=== PATIENT | male | born 1995 | race Two or more races ===

== ENCOUNTER 2020-12-17 08:44 | Emergency (ER) | payer OTHER, SELFPAY ==
--- NOTE | ~2020-12-17 | XR_ITS ---
EXAMINATION: XR SOFT TISSUE NECK CLINICAL INDICATION: Sore throat COMPARISON: None TECHNIQUE: 2 views of the soft tissue neck were obtained. FINDINGS: Soft tissue films of the neck demonstrate a normal larynx, pharynx and upper trachea. No soft tissue swelling or opaque foreign body is demonstrated. XR/XR soft tissue neck IMPRESSION: Unremarkable soft tissue neck examination.
[2020-12-17 08:48] VITALS: BP 131/74; PULSE 125; RESP 14; TEMP 36.9; O2SAT 95; BMI 28.0
--- NOTE | 2020-12-17 09:14 | ED.GENADULT ---
HPI - General Adult General Chief complaint: General Medical Stated complaint: tonsils are swollen Time Seen by Provider: 12/17/20 09:05 History of Present Illness HPI narrative: This is a 25 years old patient presented to the emergency department with a chief complaint of a sore throat today denies any fever chills vomiting Onset (ago): week(s) (1) Radiation: non-radiation Severity: moderate Severity scale (1-10): 5 Quality: burning Pain Consistency: constant Related Data Previous Rx's Medication Instructions Recorded prednisone 20 mg tablet 60 mg PO DAILY #12 tab 12/17/20 prednisone 20 mg tablet 60 mg PO DAILY #12 tab 12/17/20 Allergies Allergy/AdvReac Type Severity Reaction Status Date / Time No Known Allergies Allergy Verified 12/17/20 09:06 Review of Systems Review of Systems: Yes all other systems are reviewed and are negative Constitutional: Constitutional: Denies fever(s) ENT: Reports as per HPI Cardiovascular: Cardiovascular: Reports no additional cardiovascular complaints Respiratory: Respiratory: Reports no additional respiratory complaints Gastrointestinal: Gastrointestinal: Reports no additional gastrointestinal complaints Musculoskeletal: Musculoskeletal: Reports no additional musculoskeletal complaints Neurologic: Reports system reviewed and no additional complaints, except as documented [facility] Past Medical History Attestation statement: The following information was validated with the patient. Social History Social History Alcohol intake: never Patient Tobacco Use Status: Never used Tobacco Use of substances other than those prescribed or required for medical reasons: No Advance Directives: Yes Advance Directives Information Provided: Yes Advance Directives on File: No Physical Exam Vital Signs: Vital Signs: Last Vital Signs Temp 98.5 F 12/17/20 08:48 Pulse 122 H 12/17/20 11:05 Resp 16 12/17/20 11:05 BP 124/84 12/17/20 11:05 Pulse Ox 99 12/17/20 11:05 Body Mass Index 28.0 Const: Other: He is not toxic-appearing General: cooperative Nutritional Appearance: average body habitus Orientation/consciousness: oriented to person, oriented to place, oriented to time and patient oriented x3 HENMT: Other: Examination the throat showed swelling of the tonsil with exudates present Head: Yes normal to inspection Ears: hearing grossly normal bilaterally General nose exam: Normal external nose present Face and sinus: Yes normal facial exam Throat: Yes other (Swelling of the tonsils with exudation) Neck: Neck: Yes normal visual inspection Thyroid: Thyroid normal Chest: Chest palpation & inspection: normal inspection of the chest and normal palpation of entire chest wall Resp: Auscultation: clear to auscultation bilaterally Cardio: Jugular venous distension: no JVD Rate: regular rate Rhythm: regular rhythm GI: Inspection: Yes normal to inspection Palpation (GI): Soft to palpation, nontender and no guarding Auscultation: normal bowel sounds Skin: General skin exam: no rashes or lesions noted and elasticity normal Lesions: no lesions Wounds: no wounds Neuro: Other: Patient is awake alert oriented x3 no focal deficit General: oriented to person, oriented to place, oriented to time and patient oriented x3 Course Reevaluation(s) Reevaluation #1: HE IS FEELING BETTER HE IS ABLE TO TOLERATE P.O. WELL IS AFEBRILE AND NONTOXIC LABS SHOW THAT HE HAS MONOSPOT POSITIVE, WE WILL DISCHARGE THE PATIENT HOME ON PREDNISONE I GAVE HIM A PRESCRIPTION A 60 MG OF P.O. FOR 4 DAYS Medical Decision Making Lab Data Result diagrams: 12/17/20 11:02 12/17/20 11:02 Labs: Lab Results 12/17/20 12/17/20 12/17/20 Range/Units 09:22 09:54 11:02 WBC 14.9 H (4.8-10.8) X10*3/uL RBC 5.43 (4.60-5.80) X10*6/uL Hgb 14.0 (14.0-18.0) g/dl Hct 42.0 (42-52) % MCV 77.3 L (80-98) fL MCH 25.8 L (27.0-33.0) pg MCHC 33.3 (31.0-36.0) g/dl RDW 14.2 (11.0-16.0) % Plt Count 301 (160-400) X10*3/uL MPV 10.1 (9.4-12.4) fL Immature Gran % (Auto) Cancelled Neut % (Auto) Cancelled Lymph % (Auto) Cancelled [place] % (Auto) Cancelled Eos % (Auto) Cancelled Baso % (Auto) Cancelled Lymph # (Auto) Cancelled [place] # (Auto) Cancelled Eos # (Auto) Cancelled Baso # (Auto) Cancelled Abs Immat Gran (auto) Cancelled Absolute Neuts (auto) Cancelled Absolute Nucleated RBC 0.000 (0.0-0.012) X10*3/uL Nucleated RBC % (auto) 0.0 (0.0-0.2) /100WBC Neutrophils % (Manual) 35 L (45-73) % Band Neutrophils % 4 (3-5) % Lymphocytes % (Manual) 34 (20-40) % Atypical Lymphs % (Man) 18 H (0-6) % Monocytes % (Manual) 8 (2-11) % Basophils % (Manual) 1 (0-1) % Abs Neuts (Manual) 5.8 (2.2-7.9) X10*3/uL Lymphocytes # (Manual) 5.1 H (0.6-4.8) X10*3/uL Atyp Lymphs # (Manual) 2.7 x10*3/uL Monocytes # (Manual) 1.2 (0.0-1.2) X10*3/uL Basophils # (Manual) 0.1 (0.0-0.3) X10*3/uL Platelet Estimate NORMAL (NORMAL) Plt Morphology Comment NORMAL RBC Morphology NOTED Microcytosis 2+ (15-30) /OIF Acanthocytes (Spur) 1+ (0-2) /OIF Sodium (135-145) mmol/L Potassium (3.3-5.1) mmol/L Chloride (96-108) mmol/L Carbon Dioxide (22-29) mmol/L Anion Gap (12-20) BUN (9-16) mg/dL Creatinine (0.5-1.4) mg/dL Estim Creat Clear Calc Estimated GFR Random Glucose (60-115) mg/dL Calcium (8.4-10.2) mg/dL Total Bilirubin (0.0-1.0) mg/dL AST (5-37) U/L ALT (0-40) U/L Alkaline Phosphatase (39-117) U/L Total Protein (6.5-8.0) g/dL Albumin (3.5-5.0) g/dL Monoscreen (Negative) S. pyogenes GrpA STEPHANE (Negative) 12/17/20 12/17/20 Range/Units 11:02 11:02 WBC (4.8-10.8) X10*3/uL RBC (4.60-5.80) X10*6/uL Hgb (14.0-18.0) g/dl Hct (42-52) % MCV (80-98) fL MCH (27.0-33.0) pg MCHC (31.0-36.0) g/dl RDW (11.0-16.0) % Plt Count (160-400) X10*3/uL MPV (9.4-12.4) fL Immature Gran % (Auto) Neut % (Auto) Lymph % (Auto) [place] % (Auto) Eos % (Auto) Baso % (Auto) Lymph # (Auto) [place] # (Auto) Eos # (Auto) Baso # (Auto) Abs Immat Gran (auto) Absolute Neuts (auto) Absolute Nucleated RBC (0.0-0.012) X10*3/uL Nucleated RBC % (auto) (0.0-0.2) /100WBC Neutrophils % (Manual) (45-73) % Band Neutrophils % (3-5) % Lymphocytes % (Manual) (20-40) % Atypical Lymphs % (Man) (0-6) % Monocytes % (Manual) (2-11) % Basophils % (Manual) (0-1) % Abs Neuts (Manual) (2.2-7.9) X10*3/uL Lymphocytes # (Manual) (0.6-4.8) X10*3/uL Atyp Lymphs # (Manual) x10*3/uL Monocytes # (Manual) (0.0-1.2) X10*3/uL Basophils # (Manual) (0.0-0.3) X10*3/uL Platelet Estimate (NORMAL) Plt Morphology Comment RBC Morphology Microcytosis /OIF Acanthocytes (Spur) /OIF Sodium 137 (135-145) mmol/L Potassium 3.9 (3.3-5.1) mmol/L Chloride 102 (96-108) mmol/L Carbon Dioxide 24 (22-29) mmol/L Anion Gap 15 (12-20) BUN 8 L (9-16) mg/dL Creatinine 1.05 (0.5-1.4) mg/dL Estim Creat Clear Calc 96.3 Estimated GFR > 60 Random Glucose 101 (60-115) mg/dL Calcium 9.8 (8.4-10.2) mg/dL Total Bilirubin 0.6 (0.0-1.0) mg/dL AST 62 H (5-37) U/L ALT 177 H (0-40) U/L Alkaline Phosphatase 138 H (39-117) U/L Total Protein 8.1 H (6.5-8.0) g/dL Albumin 4.6 (3.5-5.0) g/dL Monoscreen Positive A (Negative) S. pyogenes GrpA STEPHANE (Negative) Discharge Plan Discharge Clinical Impression: Mononucleosis Patient Disposition: Home, Self-Care Instructions: Mononucleosis (ED) Prescriptions: New prednisone 20 mg tablet 60 mg PO DAILY Qty: 12 RF: 0 prednisone 20 mg tablet 60 mg PO DAILY Qty: 12 RF: 0
--- NOTE | 2020-12-17 09:42 | PC.NURSE ---
Per lab Strep swab not resulting and a new order should be placed and specimen re-collected.
[2020-12-17] MEDS: predniSONE 20 MG TABLET 60 MG PO (09:53)
[2020-12-17 10:23] LABS: IDNOW Serial# 08D9AD1C
[2020-12-17 11:05] VITALS: BP 124/84; PULSE 122; RESP 16; O2SAT 99
[2020-12-17] MEDS: 0.9 % Sodium Chloride 1,000 ML 999 ML IVCONT (11:05)
[2020-12-17 11:09] LABS: Mean Corpuscular HGB Conc 33.3 g/dl (31.0-36.0); Mean Corpuscular Hemoglobin 25.8 pg (27.0-33.0); Mean Corpuscular Volume 77.3 fL (80-98); Mean Platelet Volume 10.1 fL (9.4-12.4); Platelet Count 301 X10*3/uL (160-400); Red Blood Count 5.43 X10*6/uL (4.60-5.80); Red Cell Distribution Width 14.2 % (11.0-16.0); White Blood Count 14.9 X10*3/uL (4.8-10.8)
[2020-12-17 11:31] LABS: Alanine Aminotransferase 177 U/L (0-40); Albumin Level 4.6 g/dL (3.5-5.0); Alkaline Phosphatase 138 U/L (39-117); Anion Gap 15 (12-20); Aspartate Amino Transferase 62 U/L (5-37); Bilirubin Total 0.6 mg/dL (0.0-1.0); Blood Urea Nitrogen 8 mg/dL (9-16); Calcium 9.8 mg/dL (8.4-10.2); Carbon Dioxide 24 mmol/L (22-29); Chloride 102 mmol/L (96-108); Creatinine Clr Calc Pharmacy 96.3; Estimated Glomerular Filt Rate > 60; Glucose Random 101 mg/dL (60-115); Potassium 3.9 mmol/L (3.3-5.1); Sodium 137 mmol/L (135-145); Total Protein 8.1 g/dL (6.5-8.0)
[2020-12-17 11:37] LABS: Atypical Lymph Absolute Manual 2.7 x10*3/uL; Atypical Lymphs Percent Manual 18 % (0-6); Band Neutrophils Percent 4 % (3-5); Basophils Abs Manual 0.1 X10*3/uL (0.0-0.3); Basophils Percent Manual 1 % (0-1); Lymphocytes Absolute Manual 5.1 X10*3/uL (0.6-4.8); Lymphocytes Percent Manual 34 % (20-40); Monocytes Absolute Manual 1.2 X10*3/uL (0.0-1.2); Monocytes Percent Manual 8 % (2-11); Neutrophils Absolute Manual 5.8 X10*3/uL (2.2-7.9); Neutrophils Percent Manual 35 % (45-73)
[2020-12-17 11:38] LABS: Microcytosis 2+ (15-30) /OIF; Platelet Estimate NORMAL (NORMAL); Platelet Morphology Comment NORMAL; RBC Morphology NOTED
[2020-12-17 11:39] LABS: Acanthocytes 1+ (0-2) /OIF
[2020-12-17 11:57] LABS: Monotest Positive (Negative)
[2020-12-17] MEDS: dexAMETHasone sod phosphate 4 MG/ML VIAL 6 MG IVPUSH (12:32)
[2020-12-17 12:35] VITALS: BP 115/65; PULSE 68; RESP 16; O2SAT 98
== END 2020-12-17 12:45 | disposition home or self-care (01) ==
PROVIDERS: Emergency Provider Emergency Medicine
DX: B27.90 Infectious mononucleosis, unspecified without complication (principal)
CPT/HCPCS: 36415; 70360; 80053; 85007; 85027; 86308; 87071; 87147; 87651; 96361; 96374; 99284; J1100